=== PATIENT | male | born 1975 | race Caucasian/White ===

== ENCOUNTER 2020-06-26 18:09 | Emergency (ER) | payer BC ==
[~2020-06-26] VITALS: Ht 177.8 cm; Wt 93.0 kg
== END 2020-06-26 19:14 | disposition home or self-care (01) ==
LOC: ED 18:09
DX: S50.911A Unspecified superficial injury of right forearm, initial encounter (principal); X50.0XXA Overexertion from strenuous movement or load, initial encounter
CPT/HCPCS: 99283

== ENCOUNTER 2022-01-04 16:50 | Inpatient (IN) | payer BC ==
[~2022-01-04] VITALS: Ht 177.8 cm; Wt 86.8 kg
--- NOTE | ~2022-01-04 | EKG ---
[facility] [address] [place], [place] [address] Draft EK completed, results pending confirmation PATIENT NAME: JODY BLEVINS DES Electrocardiogram DATE OF : 71 PHYSICIAN: PRELIMINARY REPORT #: [id number] REPORT IS CONFIDENTIAL AND NOT TO BE RELEASED WITHOUT AUTHORIZATION
--- NOTE | 2022-01-04 19:44 | NUR ---
PATIENT ADMITTED TO CCU AT 1855 FOR AFIB W/RVR. PT NEEDS TO GO INTO BATHROOM IMMEDIATLEY TO HAVE A BM AND VOID. PT STEADY ON STANDING AND DENIES SHORTNESS OF BREATH. PT'S JOSE WITH HIM UPON ARRIVAL. PT'S HR IN THE 140-180s AFIB. PT ON DILT GTT AT 10 MG/HR. STARTING DISCUSSION WITH PATIENT REGARDING AFIB AND CHF. PT HAS 2+ EDEMA IN LOWER LEGS WHICH PT STATES HAS BEEN GOING ON FOR THE LAST COUPLE OF WEEKS. REPORT TO SUPERVISOR ENGINE ASSEMBLY.
--- NOTE | 2022-01-04 21:26 | NUR ---
PATIENT EDUCATED ON NEW DX OF CHF AND AFIB. URINAL AT BEDSIDE. ALSO AT BEDSIDE. PATIENT EDUCATED ON FLUID RESTRICTION OF 1600MLS. EDUCATED TO ROOM AND CALL LIGHT. EDUCATED ON NEW MEDICATIONS; LOPRESSER AND LOVENOX. BP CUFF REPOSITIONED FOR PT COMFORT.
--- NOTE | 2022-01-04 23:37 | NUR ---
PATIENT LYING IN BED WITH PILLOW OVER FACE. RESPIRATIONS EVEN AND UNLABORED. CALL LIGHT IN REACH. VS STABLE. HR 80-90'S. SLEEPING IN CHAIR.
--- NOTE | 2022-01-05 01:45 | NUR ---
PATIENT AMBULATED TO RESTROOM INDEPENDENTLY. REPORTS HAVING A BM AND AN UNMEASURED URINE VOID. CALL LIGHT IN REACH AND CAN MAKE NEEDS KNOWN.
--- NOTE | 2022-01-05 04:03 | NUR ---
PATIENT RESTING IN BED WITH EYE CLOSED. CALL LIGHT IN REACH. VS STABLE. HR IN THE 90'S-100'S
--- NOTE | 2022-01-05 05:30 | NUR ---
PATIENT AMBULATED TO THE RESTROOM. HR NOTED TO RISE UP TO THE 140'S WITH AMBULATION. PATIENTS HR BACK TO THE LOW 100'S AT REST. CALL LIGHT IN REACH. PATIENT REPORTED A BM.
--- NOTE | 2022-01-05 08:21 | NUR ---
PT HEART RATE IN THE 150S WHILE PT IS EATING BREAKFAST. GIVEN SCHEDULED LOPRESSOR AT THIS TIME. DISCUSSED HEART RATE WITH DR POP. ORDERS RECIEVED (SEE EMAR). AT PT BEDSIDE. PLAN OF CARE FOR DAY DISCUSSED.
--- NOTE | 2022-01-05 09:12 | NUR ---
SECOND DOSE OF ORAL LOPRESSOR GIVEN. PT HEART RATE IN THE 130S AT REST. PT HAS MANY QUESTIONS. NURSING EDUCATION PROVIDED ABOUT MEDICATIONS, FLUID RESTRICTION, AND LIFESTYLE CHANGES. WILL CONTINUE TO PROVIDE EDUCATION TO PT AND SIGNIFICANT OTHER.
--- NOTE | 2022-01-05 09:25 | NUR ---
SEDATION AWAKENING TRAIL BEGUN. PRECEDEX TITRATED DOWN TO 0.3MG/KG/HR. STARTING PROPOFOL TITRATION AT THIS TIME. PT REMAINS AT A -3 ON THE RASS SCALE. THIS RN AT BEDSIDE.
--- NOTE | 2022-01-05 09:34 | NUR ---
PT AMBULATED TO BATHROOM. HEART RATE UP INTO THE 170S WITH ACTIVITY. PT DENIES DIZZINESS, CHEST DISCOMFORT, SHORTNESS OF BREATH OR ANY OTHER SYMPTOMS. PT NOW BACK IN BED. HR AT 130-140 AT REST. WILL CONTINUE TO CLOSELY MONITOR.
--- NOTE | 2022-01-05 11:07 | NUR ---
PT HEART RATE 100-120 AT REST. REMAINS IN AN AFIB RHYTHM. AT BEDSIDE. CALL LIGHT WITHIN REACH. WILL CONTINUE TO MONITOR.
--- NOTE | 2022-01-05 12:38 | NUR ---
PATIENT UP TO BR FOR VOID AND BM. TOILET FLUSHED BY PATIENT. VITALS CHARTED. CALL LIGHT IN EASY REACH
--- NOTE | 2022-01-05 14:21 | NUR ---
ORAL LOPRESSOR ADMINISTERED. PT HEART RATE REAMINS BETWEEN 110-140 AT REST. PT DIURESING WELL. FURTHER DISCUSSED FLUID RESTIRICTION WITH PT AT THIS TIME. CALL LIGHT WITHIN REACH. WILL CONTINUE TO MONITOR.
--- NOTE | 2022-01-05 16:18 | NUR ---
IN ROOM FOR MED ADMINISTRATION. ASSESSMENT UNCHANGED. CALL LIGHT WITHIN REACH. WILL CONTINUE TO MONITOR.
--- NOTE | 2022-01-05 19:45 | NUR ---
PATIENT RESTING IN BED. DENIES SOB OR PAIN. REPORTS BEING ABLE TO LIE FLAT IN BED. AT BEDSIDE. HR IN THE 110'S. ON ROOM AIR. PATIENT REPORTED LOVENOX INJECTION GAVE HIM RESTLESS LEGS LAST NIGHT. EDUCATED ON MEDICATION USE AND PATIENT AGREED TO TAKE. EDUCATED ON LOPRESSOR INCREASED DOSE. URINALS EMPTIED AND WATER MUG FILLED. RE EDUCATED ON FLUID RESTRICTION.
--- NOTE | 2022-01-05 23:39 | NUR ---
PATIENT RESTING IN BED WITH EYES CLOSED. RESPIRATIONS EVEN AND UNLABORED. VS STABLE. HR 90'S-100'S. AT BEDSIDE. CALL LIGHT IN REACH.
--- NOTE | 2022-01-06 01:41 | NUR ---
PATIENT CALLED TO USE RESTROOM. AMBULATED INDEPENDENTLY. HAD A BM. GAVE PO METOPROLOL. REPORTS HAVING NIGHT SWEATS. AT BEDSIDE. CALL LIGHT IN REACH AND CAN CLARK NEEDS KNISABELLANW.
--- NOTE | 2022-01-06 04:43 | NUR ---
PATIENT RESTING IN BED WITH EYES CLOSED. RESPIRATIONS EVEN AND UNLABORED. CALL LIGHT IN REACH AND CAN MAKE NEEDS KNOWN.
--- NOTE | 2022-01-06 07:30 | NUR ---
REPORT RECIEVED. ECHO BEING DONE AT BEDSIDE.
--- NOTE | 2022-01-06 08:00 | NUR ---
AWAKE ASSESSMENT DONE. DENIES PAIN OR SHORT OF BREATH. VERY TALKATIVE. TALKED WITH PATIENT ABOUT POC FOR DAY, INDICATES UNDERSTANDING. HR VARIES FROM 100 TO 160. PO LOPRESSOR 75 MG GIVEN ORDERED ROUTINE. REMAINS ON FLUID RESTRICTION AND 2 GM NA DIET.
--- NOTE | 2022-01-06 09:00 | NUR ---
TOOK BREAKFAST FAIR. RESTING.
--- NOTE | 2022-01-06 10:30 | NUR ---
NAPPING. HR REMAINS 100-160, TREND IS AVERAGE 120. DR. HERRING IS AWARE OF HR. NO FUTHER ORDERS AT THIS TIME.
--- NOTE | 2022-01-06 10:55 | NUR ---
PATIENT WAS BEING SEEN BY CARDIAC EDUCATION NURSE. DEFER ASSESSMENT AT THIS TIME.
--- NOTE | 2022-01-06 11:18 | NUR ---
PATIENT UP TO BR FOR BEDBATH, PATIENT ABLE TO DO MOST OF THE BATH HIMSELF, WITH THIS ORDER SCHEDULE CLERK WASHING HIS BACK. PATIENTS HR 140-165 WHILE IN BR CLEANING HIMSELF AT BATHROOM SINK. LINEN CHANGED. IN ROOM. CALL LIGHT IN EASY REACH
--- NOTE | 2022-01-06 14:51 | NUR ---
Certified Heart Failure Nurse Notes: Diagnosis: AFib and heart failure echocardiogram results pending Cloth Printer Helper- NA PCP:Patient does not have a current PCP Date of echocardiogram -01/06/22 Admit Pro BNP: 5885 Social support system: is at bedside. 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 Weight monitoring: Scale not present in travel home. Reports he can go to friends shop in [place] to weigh. Encouraged daily weights to monitor for fluid gain. Patient reports he often gains 5lbs at end of gym sessions and drinks large amount of water at these sessions. Encouraged patient to have reasonable fluid intake. Symptom management: Addressed monitoring and reporting changes in weight or symptoms utilizing Zones form. Transportation mode: has own vehicle Diet: Dines out at times when traveling. Makes homemade soup and vegetable shakes without added sodium. Eats powerbars and spouse identified that some have higher sodium content than others. Discussed reading labels to be familiar with sodium content per serving size. 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 Also goes to gym. Medication routine: Currently takes supplements Has been counseled on minimizing/avoiding use of NSAIDs Advanced directive: Not discussed at this initial visit Vaccination status: Has had Moderna vaccine Recommendations prior to discharge: Document ambulation oxygen saturations prior to discharge Absence of orthostatic hypotension. Discharge weight less than admit weight. Discharge BNP less than admit (as per [facility] Heart Failure DC Bundle) Assist in establishing with PCP visit prior to his DC. Barriers to self-care include: Lack of PCP. Routine of large amount of water intake. Knowledge deficit of disease. Self-Management Goal: Patient is very concerned with job change due to heart illness Follow-up plans: Patient agrees to receive a follow up call from this service. Patient does not currently qualify for cardiac rehabilitation but would be welcome for complimentary outpatient heart failure education. Teaching materials given today: [facility] Heart Failure bundle folder-[facility] My Action Plan Living Well with Heart Failure book, Daily weight and symptom monitoring log, Zones magnet, [facility] contact information
--- NOTE | 2022-01-06 15:40 | NUR ---
AMBULATED IN HALLWAY, HR TO 170 WITH AMBULATION. PATIENT DENIES SHORTNESS OF BREATH, DIZZINESS. SAID LEGS ARE WEEK.
--- NOTE | 2022-01-06 16:00 | NUR ---
ASSESSMENT DONE, PATIENT IS VERY TALKATIVE. HAS MANY OPINIONS ABOUT HEALTH AND NUTRITION. PATIENT IS IN ROOM.
--- NOTE | 2022-01-06 18:00 | NUR ---
TOOK DINNER WELL. AMBULATING IN HALLWAY ACCOMP BY RN. HR TO 170. PATIENT C/O MILD SHORTNESS OF BREATH.
--- NOTE | 2022-01-06 19:00 | NUR ---
REPORT TO NEXT SHIFT.
--- NOTE | 2022-01-06 20:30 | NUR ---
PATIENT AMBULATED TO RESTROOM INDEPENDENTLY. REPORTS FEELINGS OF SOB WITH AMBULATION LASTING ABOUT 10 SECS THEN RESOLVING. DENIES PAIN. RE-EDUCATED ON 1600ML FLUID RESTRICTION. AT BEDSIDE AND ALL QUESTIONS ANSWERED. PATIENTS HR AT REST REMAINS IN THE 100-120'S.
--- NOTE | 2022-01-07 00:43 | NUR ---
PATIENT AWAKE. VOIDED USING URINAL. TOOK PO MEDS WITH WATER. CALL LIGHT IN REACH AND CAN MAKE NEEDS KNOW.
--- NOTE | 2022-01-07 06:23 | NUR ---
PATIENT RESTING IN BED WITH EYES CLOSED. RESPIRATIONS EVEN AND UNLABORED. HR IN THE 110'S AT REST, 140-150'S WITH AMBULATION. CALL LIGHT IN REACH AND CAN MAKE NEEDS KNOWN.
--- NOTE | 2022-01-07 07:30 | NUR ---
REPORT RECIEVED. PATIENT IS RESTFUL IN BED.
--- NOTE | 2022-01-07 08:10 | NUR ---
ASSESSMENT DONE. NOW SITTING UP IN BED READY FOR BREAKFAST. IN ROOM. TALKED WITH PATIENT ABOUT POC FOR DAY. INDICATES UNDERSTANDING. PATIENT DENIES PAIN, NAUSEA, SHORTNESS OF BREATH.
--- NOTE | 2022-01-07 10:00 | NUR ---
SITTING UP IN BED VISITING WITH . NO CHANGES.
--- NOTE | 2022-01-07 12:30 | NUR ---
AMBULATING IN OVERTON WITH RN. PATIENT DENEIS PAIN, HAS MILD SHORTNESS OF BREATH WITH EXERTION. HR 130
--- NOTE | 2022-01-07 12:30 | NUR ---
AMBULATING IN OVERTON WITH RN. HAS MILD SHORTNESS OF BREATH WITH EXERTION. HR 120-160 WITH EXERTION. AFTER AMBULATION, SITTING IN CHAIR, SPONGE BATH GIVEN, GOWN CHANGED.
--- NOTE | 2022-01-07 13:45 | NUR ---
SPOKE WITH PATIENT IN ROOM. HE IS UP IN CHAIR, JOSE PRESENT. PATIENT LIVES IN IN [place] AT THIS TIME DUE TO WORK. HIS MAILING ADDRESS IS VERIFIED [place]. HIS DOES NOT STAY IN TOWN HERE WITH HIM PASTORAL ASSISTANT. USES NO DME. DRIVES. DENIES WORRY FOR AFFORDING FOOD, UTILITIES, OR MEDICATIONS. HAS INSURANCE. HE STATES HE IS ON VACATION STARTING TOMORROW AND WOULD LIKE TO GET ALL APPOINTMENTS ARRANGED AND SEEN IN THE NEXT 10 DAYS HE CANNOT TELL HIS EMPLOYER "THERE IS ANYTHING WRONG WITH MY HEART". PATIENT STATES DOES HIS THAT THEY WILL FIND A WAY TO FIRE HIM BECAUSE THEY DON'T WANT ANYONE WITH HEALTH ISSUES ON THE JOB. I DISCUSSED THAT THIS IS PROBABLY ILLEGAL AND HE SHOULD TALK TO THE COMPANY OR SOMEONE SUCH [employer]. THEY BOTH DECLINE THIS IDEA. "NO THEY WILL DENY IT, BUT WE SEE IT ALL THE TIME". PATIENT STATES HIS PLAN WILL BE TO GET EVERYTHING DONE IN THE NEXT WEEK AND THEN JUST GO BACK TO WORK. PATIENT DENIES HAVING A PCP. DISCUSSED THIS. HE WANTS US TO FIND A PCP HERE. DISCUSSED THAT WE CAN GET HIM A F/U DISCHARGE APPOINTMENT AT OUR CLINIC, BUT UNSURE IF HE CAN GET A PCP. ALSO THAT IF HE DOESN'T ACTUALLY LIVE HERE HE MAY WANT TO GET ONE IN HIS HOME TOWN. HE STATES HE PLANS TO BE HERE AWHILE SO SHOULD BE OK. HE ALSO STATES THE DR HERE TOLD HIM HE NEEDS TO SEE A UNDERWRITER MORTGAGE LOAN AND HE WANTS TO SEE THEM BEFORE GOING BACK TO WORK, TOO. EXPLAINED THAT GETTING AN APPOINTMENT WITH SPECIALIST IS SOMETIMES FARTHER OUT, BUT WE WILL TRY IF THAT REFERRAL IS PUT IN BY THE HOSPITALIST FOR DISCHARGE. PATIENT SPOKE SOME ON THE WEIGHT HE LOST DUE TO WATER LOSS. WE DISCUSSED THIS. HE IS WORRIED HE IS LOOSING MUSCLE MASS. EXPLAINED THAT COMES OFF MUCH SLOWER AND HE WILL BE A LITTLE WEAK AND CAN WORK UP TO THAT AFTER FOLLOWING UP WITH DISCHARGE APPOINTMENT. QUESTIONS ANSWERED FOR HE AND .
--- NOTE | 2022-01-07 16:34 | NUR ---
RESTING, IS W/O PAIN. ASSESSMENT UNCHANGED.
--- NOTE | 2022-01-07 18:00 | NUR ---
NO CHANGES, HAS BEEN SITTING IN CHAIR ALL AFTERNOON.
--- NOTE | 2022-01-07 19:26 | NUR ---
REPORT RECEIVED FROM FAYE RN, WILL CONTINUE PLAN OF CARE.
--- NOTE | 2022-01-07 20:15 | NUR ---
PT RESTING IN BED AWAKE AND ALERT AT THIS TIME, PT'S AT THE BEDSIDE. PT ALERT AND ORIENTED X4 AND REPORTS NO PAIN OR SHORTNESS OF BREATH WHEN ASKED. VITALS TAKEN AT THIS TIME AND ASSESSMENT COMPLETED. PT ALERT AND ORIENTED X4, HEART RATE IRREGULAR 90-110'S, LUNGS CLEAR, ABDOMEN SOFT, ACTIVE BOWEL TONES PRESENT. RADIAL AND PEDAL PULSES +2, NO EDEMA PRESENT. PT DENIES NUMBNESS AND TINGLING TO EXTREMITIES WHEN ASKED. QUESTIONS ANSWERED FOR PT ON FLUID RESTRICTION AND MEDICATIONS AT THIS TIME. SCHEDULED LOVENOX THEN ADMINISTERED. PT REPORTS NO FURTHER NEEDS AFTERWARDS AND WAS PROVIDED WITH ICE WATER. CALL LIGHT IN REACH, BED IN LOWEST POSITION, PT'S REMAINS IN THE ROOM, PT RESTING IN BED. WILL CONTINUE PLAN OF CARE.
--- NOTE | 2022-01-07 22:40 | NUR ---
PT RESTING IN BED WITH EYES CLOSED IN NO APPARENT DISTRESS. RESPIRATIONS EVEN AND UNLABORED. PT LEFT UNDISTURBED. 450ML OF URINE EMPTIED FROM BEDSIDE URINAL. NO FURTHER NEEDS ASSESSED, WILL CONTINUE PLAN OF CARE. CALL LIGHT IN REACH, BED IN LOWEST POSITION.
--- NOTE | 2022-01-08 00:13 | NUR ---
PT RESTING IN BED ON HIS SIDE AT THIS TIME WITH HIS EYES CLOSED. RESPIRATIONS NOTED AND ARE EVEN AND UNLABORED. PT IN NO APAPRENT DISTRESS AT THIS TIME AND WAS LEFT UNDISTURBED. CALL LIGHT WITHIN REACH, BED IN LOWEST POSITION, PT'S IN ROOM IN THE BEDSIDE RECLINER, WILL CONTINUE PLAN OF CARE.
--- NOTE | 2022-01-08 01:45 | NUR ---
CALL LIGHT USED BY PT. PT STATES HE HAD VOIDED AND HAD A BM IN THE BATHROOM. PT DENIES LIGHTHEADEDNESS AT THIS TIME WHILE STANDING. PT ABLE TO AMBULATE BACK TO BED AND IS NOW RESTING IN BED. VITALS TAKEN AT THIS TIME AND ASSESSMENT COMPLETED (SEE CHART). PT THEN PROVIDED WITH ICE WATER AND REPORTS NO FURTHER NEEDS. CALL LIGHT IN REACH, BED IN LOWEST POSITION. PT'S IN ROOM AT THE BEDSIDE.
--- NOTE | 2022-01-08 02:15 | NUR ---
PT RESTING IN BED AWAKE AND ALERT. SCHEDULED LANOXIN ADMINISTERED IV (SEE MAR). PT THEN PROVIDED WITH A SNACK PER HIS REQUEST. PT REPORTS NO FURTHER NEEDS AND REMAINS RESTING IN BED. PT'S REMAINS AT THE BEDSIDE. CALL LIGHT IN REACH, BED IN LOWEST POSITION, WILL CONTINUE PLAN OF CARE.
--- NOTE | 2022-01-08 04:58 | NUR ---
PT RESTING IN BED WITH A SLEEP MASK ON. PT'S RESPIRATIONS ARE EVEN AND UNLABORED. PT IS IN NO APPARENT DISTRESS. PT LEFT UNDISTURBED AT THIS TIME. WILL CONTINUE PLAN OF CARE. CALL LIGHT IN REACH, BED IN LOWEST POSITION.
--- NOTE | 2022-01-08 05:32 | NUR ---
GENERAL SCRAP WORKER FINISHED DRAWING PT'S LABS. THIS RN IN TO ASSESS PT AND TAKE VITALS. PT RESTING IN BED AWAKE AND ALERT AT THIS TIME. VITALS TAKEN AT THIS TIME AND ASSESSMENT COMPLETED (SEE CHART). PT URINAL EMPTIED OF 500ML AT THIS TIME. PT REPORTS NO FURTHER NEEDS AFTERWARDS AND REMAINS RESTING IN BED. PT'S REMAINS ON THE BEDSIDE RECLINER. WILL CONTINUE PLAN OF CARE. CALL LIGHT IN REACH, BED IN LOWEST POSITION.
--- NOTE | 2022-01-08 06:10 | NUR ---
PT AWAKE AND ALERT RESTING IN BED. PT USED THE URINAL AT THIS TIME, STANDING WEIGHT THEN TAKEN AND WAS 86.8 KG (191.3 LBS). PT RETURNED BACK TO BED AND IS NOW RESTING IN BED. PT PROVIDED WITH WATER AT THIS TIME AND REPORTS NO FURTHER NEEDS WHEN ASKED. CALL LIGHT IN REACH, BED IN LOWEST POSITION, WILL CONTINUE PLAN OF CARE.
--- NOTE | 2022-01-08 07:30 | NUR ---
PATIENT SHIFT REPORT RECIEVED FROM TRUCK ENGINE TECHNICIAN RN. PATIENT RESTING IN BED. PATIENTS IS AT THE BEDSIDE. PATIENT CALLS APPROPRIATELY. WILL CONTIUE TO CLOSELY MONITOR.
--- NOTE | 2022-01-08 08:24 | NUR ---
PATIENT ASSESSMENT COMPLETED. PATIENT RESTING IN BED. PATIENTS AT THE BEDSIDE. PATIENT IS VERY TALKATIVE THIS AM AND EXPLAINING TO THIS RN HOW HE DOES LOTS OF RESEARCH AND TAKES MANY DIFFERENT SUPPLEMENTS AND INTAKES DIFFERENT FOODS TO WATCH HIS HEALTH. PATIENT EDUCAATED ABOUT DIGOXIN AND A.FIB. PATIENT DOES NOT FEEL PALPITATIONS. PATIENT DENIES SOB. PATIENTS BREATH SOUNDS CLEAR. BOWEL TONES ACTIVE. NO EDEMA NOTED. PATIENTS PULSES ARE STRONG. PATIENT STATES "I AM REALLY HOPING TO GET OUT OF HERE TODAY". PATIENT DENIES ANY OTHER NEEDS AT THIS TIME. WILL CONTINUE TO CLOSELY MONITOR.
--- NOTE | 2022-01-08 09:00 | NUR ---
PATIENT UP TO BR FOR VOID AND TO WASH HIMSELF. ORAL CARE ALSO DONE. PATIENT USING REMAINING 200MIL OF FREE WATER TO MAKE PROTIEN SHAKE. PATIENT STATE HE BELIEVES THAT DRINKING THIS SHAKE WILL "HELP HIS NUMBERS" LIKE IT DID YESTERDAY. IN ROOM. LINEN CHANGED. NO OTHER NEEDS AT THIS TIME
--- NOTE | 2022-01-08 10:07 | NUR ---
PER UPDATE FROM LYNDA MOORE PATIENT DOING WELL. CCU STAFF STATES DR. HERRING IS AWAITING THE PATIENT ECHO RESULTS. WILL FOLLOW UP WITH PATIENT ABOUT ESTABLISHING A PCP.
--- NOTE | 2022-01-08 11:00 | NUR ---
THIS RN IN TO DISCUSS PLAN OF CARE. PATIENTRESTING IN BED. PATIENT UP AND WALKED THE OVERTON AND BACK TO BED. PATIENTS HR 160'S-180'S. PATIENT DOES NOT HAVE ANY SYMPTOMS. WILL CONTINUE TO CLOSELY MONITOR.
--- NOTE | 2022-01-08 11:50 | NUR ---
THIS RN IN WITH MD RUANO TO DISCUSS PLAN OF CARE WITH PATIENT AND HIS . PATIENT UPDATED ON HIS ECHO RESULTS. EF <20% AND GLOBAL HYPOKINESIS. PATIENT AGREEABLE TO PLAN OF CARE AND PLAN OF TRANSFER [facility]THER [facility]ARDIAC TREATMENT AND CARE.
--- NOTE | 2022-01-08 11:52 | NUR ---
1130- CONTACTED [facility]- NO BEDS 1131- [facility], NO BEDS ELSE WHERE. 1140- [facility]- NO BEDS 1140- [place]- NO BEDS 1142- [facility]- NO BEDS 1143- [facility]- NO BEDS 1145- [facility]- NO BEDS 1145- [facility]- POSSIBLE BED AT [facility] IN [place]. PT STATES HE IS WILLING TO TRAVEL THAT FAR. FACE SHEET FAXED.
--- NOTE | 2022-01-08 12:15 | NUR ---
CALLED MD RUANO TO UPDATE THAT PATIENTS HR IS 160'S-200'S. PATIENT IS SITTING IN BED. PATIENT DOES NOT HAVE ANY NEW SYMPTOMS. EXECUTIVE SALES ASSISTANT RN IS WORKING ON PATIENT TRANSFER. NO OTHER NEEDS AT THIS TIME. WILL CONTINUE TO CLOSELY MONITOR.
--- NOTE | 2022-01-08 12:16 | NUR ---
1206- [facility] [facility]- WILL CALL BACK WITH [facility]. 1209- [facility]- WILL CALL BACK WITH [facility].
--- NOTE | 2022-01-08 12:30 | NUR ---
PATIENT FINISHED WITH LUNCH, VITALS CHARTED.
--- NOTE | 2022-01-08 13:06 | NUR ---
AMIODARONE BOLUS FINISHED AND NOW INFUSION CONTINUING. PATIENT AND HIS UPDATE ON PLAN OF CARE. PATIENTS HR 140-180'S. NO OTHER NEEDS AT THIS TIME. WILL CONTINUE TO CLOSELY MONITOR.
--- NOTE | 2022-01-08 13:15 | NUR ---
CALL TO [facility] FOR TRANSPORT OF PT TO [facility], WAITING CALL BACK
--- NOTE | 2022-01-08 14:45 | NUR ---
TAMRA FROM PHARMACY HERE TO BRING NEXT AMIODARONE INFUSION BAG TO SEND WITH AMS WHEN PATIENT TRANSPORTS. PATIENT AND IN THE ROOM. ALL BELONGINGS PLACED IN BAG FOR TRANSPORT. NO OTHER NEEDS AT THIS TIME. WILL CONTINUE TO CLOSELY MONITOR.
--- NOTE | 2022-01-08 15:51 | NUR ---
PATIENT LEFT WITH EMS STAFF VIA STRETCHER. BELONGINGS SENT WITH PATIENT AND HIS . PLAN OF CARE REVIEWED WITH STAFF. NEXT DOSE OF AMIODARONE SENT WITH EMS STAFF AND REVIEWED TREATMENT PLAN, RATE, AND DOSE. NO OTHER QUESTIONS AT THIS TIME. PATIENTS LEFT AFTER PATIENT LEFT AND WILL BE FOLLOWING PATIENT TO [place].
--- NOTE | 2022-01-08 16:59 | NUR ---
CALLED TO GIVE REPORT TO RN. PER STAFF AT [facility] SINCE PATIENT WONT BE THERE FOR 6-7 HOUR. STAFF WILL HAVE THE NIGHT NURSE CALL THIS RN AT 1900 TO GET REPORT PRIOR TO PATIENTS ARRIVAL. PHONE NUMBER PROVIDED. WILL AWAIT PHONE CALL.
--- NOTE | 2022-01-08 18:20 | NUR ---
JORI REPORT GIVEN TO PROPERTY CLAIMS ADJUSTER RN AT [facility]. REVIEWED PLAN OF CARE. REVIEWED TIMES OF MEDICATION ADMINISTRATION. NO OTHER QUESTIONS AT THIS TIME. PATIENT LEFT [facility] AT 1530. EMS STAFF STATED IT WOULD TAKE 6-[address]ORT [address] [facility] IN [place].
== END 2022-01-08 15:30 | disposition short-term general hospital (02) | DRG 308 ==
LOC: ED 16:50 → CCU 18:42
PROVIDERS: ADMIT Internal Medicine; ATTEND Family Medicine
DX: I48.91 Unspecified atrial fibrillation (principal); I50.43 Acute on chronic combined systolic (congestive) and diastolic (congestive) heart failure; R73.03 Prediabetes; I08.1 Rheumatic disorders of both mitral and tricuspid valves; Z20.822 Contact with and (suspected) exposure to COVID-19; Z90.89 Acquired absence of other organs
CPT/HCPCS: 36415; 71045; 80048; 80053; 80076; 83036; 83735; 83880; 84439; 84443; 84484; 85025; 87502; 93005; 93010; 93306; A9270; C9803; J0282; J1160; J1650; J1940; U0003